=== PATIENT | male | born 1965 | race Caucasian/White ===

== ENCOUNTER 2019-05-26 13:28 | Emergency (ER) | payer BC ==
--- NOTE | 2019-05-26 13:55 | EDM.PDOC ---
ED HPI GENERAL MEDICAL PROBLEM - General Chief Complaint: Abdominal Pain Stated Complaint: STOMACH PAIN Time Seen by Provider: 05/26/19 13:49 Source of Information: Reports: Patient History Limitations: Reports: No Limitations - History of Present Illness INITIAL COMMENTS - FREE TEXT/NARRATIVE: This 54 yo male patient reports to the ED with right lower quadrant abdominal pain. The patient reports his symptoms started last night and have been intermittent throughout today. 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 The patient reports he has had kidney stones in the past and has had gastric bypass surgery. The patient reports he ate 1/2 of an ear of corn on the cob at about 12 :30 and he has been drinking tea. Onset Date: 05/25/19 Duration: Constant Location: Reports: Abdomen (RLQ) Quality: Reports: Ache, Dull Severity: Moderate Improves with: Reports: None Worsens with: Reports: None Context: Reports: Other Associated Symptoms: Reports: Other - Related Data Allergies Allergy/AdvReac Type Severity Reaction Status Date / Time No Known Allergies Allergy Verified 05/26/19 13:51 Home Meds: Home Meds Lisinopril/Hydrochlorothiazide [Lisinopril-Hctz 10-12.5 mg Tab] 1 tab PO DAILY 02/07/15 [History] Metoprolol Succinate [Toprol XL] 150 mg PO DAILY 02/07/15 [History] PARoxetine [Paxil] 40 mg PO QAM 02/07/15 [History] atorvaSTATin Calcium [Atorvastatin Calcium] 20 mg PO DAILY 02/07/15 [History] traZODone 100 mg PO BEDTIME 02/07/15 [History] Metoprolol Succinate [Toprol XL 100mg] 100 mg PO DAILY 05/14/16 [History] Past Medical History HEENT History: Reports: None Cardiovascular History: Reports: High Cholesterol, Hypertension Respiratory History: Reports: None Gastrointestinal History: Reports: None Genitourinary History: Reports: None Musculoskeletal History: Reports: None Neurological History: Reports: None Psychiatric History: Reports: Other (See Below) Other Psychiatric History: INSOMNIA Endocrine/Metabolic History: Reports: Diabetes, Type II Hematologic History: Reports: None Immunologic History: Reports: None Oncologic (Cancer) History: Reports: None Dermatologic History: Reports: None - Past Surgical History Other HEENT Surgeries/Procedures: RHINOPLASTY NEC Other GI Surgeries/Procedures: GASTRIC BYPASS Other Musculoskeletal Surgeries/Procedures:: KNEE FUSION ED ROS GENERAL - Review of Systems Review Of Systems: Comprehensive ROS is negative, except as noted in HPI. ED EXAM, GI/ABD - Physical Exam Exam: See Below Exam Limited By: No Limitations General Appearance: Alert, WD/WN, Mild Distress, Obese Eyes: Bilateral: Normal Appearance, EOMI Ears: Normal External Exam, Normal Canal, Hearing Grossly Normal, Normal TMs Nose: Normal Inspection, Normal Mucosa, No Blood Throat/Mouth: Normal Inspection, Normal Lips, Normal Teeth, Normal Gums, Normal Oropharynx, Normal Voice, No Airway Compromise Head: Atraumatic, Normocephalic Neck: Normal Inspection, Supple, Non-Tender, Full Range of Motion Respiratory/Chest: No Respiratory Distress, Lungs Clear, Normal Breath Sounds, No Accessory Muscle Use, Chest Non-Tender Cardiovascular: Normal Peripheral Pulses, Regular Rate, Rhythm, No Edema, No Gallop, No JVD, No Murmur, No Rub GI/Abdominal Exam: Normal Bowel Sounds, Guarding, Tender (RLQ) (Male) Exam: Deferred Rectal (Males) Exam: Deferred Back Exam: Normal Inspection, Full Range of Motion, NT Extremities: Normal Inspection, Normal Range of Motion, Non-Tender, Normal Capillary Refill, No Pedal Edema Neurological: Alert, Oriented, CN II-XII Intact, Normal Cognition, Normal Gait, Normal Reflexes, No Motor/Sensory Deficits Psychiatric: Normal Affect, Normal Mood Skin Exam: Warm, Dry, Intact, Normal Color, No Rash Lymphatic: No Adenopathy Course - Vital Signs Last Recorded V/S: Last Vital Signs Temp 36.6 C 05/26/19 13:47 Pulse 71 05/26/19 13:47 Resp 16 05/26/19 13:47 BP 122/86 05/26/19 13:47 Pulse Ox 97 05/26/19 13:47 - Orders/Labs/Meds Orders: Active Orders 24 hr Category Date Time Status Abdomen Pelvis w Cont [CT] Urgent Exams 05/26/19 15:06 Ordered Labs: Laboratory Tests 05/26/19 05/26/19 05/26/19 Range/Units 14:10 14:10 14:14 WBC 3.6 L (5.0-10.0) 10^3/uL RBC 4.61 (4.6-6.2) 10^6/uL Hgb 12.6 L (14.0-18.0) g/dL Hct 37.3 L (40.0-54.0) % MCV 80.9 (80-100) fL MCH 27.3 (27.0-34.0) pg MCHC 33.8 (33.0-35.0) g/dL Plt Count 184 (150-450) 10^3/uL Neut % (Auto) 42.0 L (42.2-75.2) % Lymph % (Auto) 42.7 (20.5-50.1) % [place] % (Auto) 12.5 H (2-8) % Eos % (Auto) 2.5 (1.0-3.0) % Baso % (Auto) 0.3 (0.0-1.0) % Sodium 136 (135-145) mmol/L Potassium 3.6 (3.6-5.0) mmol/L Chloride 101 (101-111) mmol/L Carbon Dioxide 28.0 (21.0-31.0) mmol/L Anion Gap 10.6 BUN 14 (7-18) mg/dL Creatinine 0.7 (0.6-1.3) mg/dL Est Cr Clr Drug Dosing 144.19 mL/min Estimated GFR (MDRD) > 60 BUN/Creatinine Ratio 20.00 Glucose 102 (74-105) mg/dL Calcium 9.1 (8.4-10.2) mg/dl Total Bilirubin 1.0 (0.2-1.0) mg/dL AST 18 (10-42) IU/L ALT 15 (10-60) IU/L Alkaline Phosphatase 64 (42-121) IU/L Total Protein 7.3 (6.7-8.2) g/dl Albumin 4.2 (3.2-5.5) g/dl Globulin 3.1 Albumin/Globulin Ratio 1.35 Urine Color Yellow (YELLOW) Urine Appearance Clear (CLEAR) Urine pH 7.0 (5.0-9.0) Ur Specific [place] <= 1.005 (1.005-1.030) Urine Protein Negative (NEGATIVE) Urine Glucose (UA) Negative (NEGATIVE) Urine Ketones Negative (NEGATIVE) Urine Occult Blood Negative (NEGATIVE) Urine Nitrite Negative (NEGATIVE) Urine Bilirubin Negative (NEGATIVE) Urine Urobilinogen 0.2 (0.2-1.0) mg/dL Ur Leukocyte Esterase Negative (NEGATIVE) Meds: Medications Discontinued Medications Generic Name Dose Route Start Last Admin Trade Name Tushar PRN Reason Stop Dose Admin Iopamidol 100 ml 05/26/19 15:06 05/26/19 15:20 Isovue-300 (61%) IVPUSH 05/26/19 15:07 100 ml ONETIME ONE Administration Departure - Departure Time of Disposition: 15:45 Disposition: Home, Self-Care 01 Condition: Fair Clinical Impression: Abdominal muscle strain Qualifiers: Encounter type: initial encounter Qualified Code(s): S39.011A - Strain of muscle, fascia and tendon of abdomen, initial encounter - Discharge Information *PRESCRIPTION DRUG MONITORING PROGRAM REVIEWED*: Not Applicable *COPY OF PRESCRIPTION DRUG MONITORING REPORT IN PATIENT CAMILA: Not Applicable Instructions: Abdominal Pain, Adult, [id number], Muscle Strain, [id number] Forms: ED Department Discharge Care Plan Goals: The patient was advised of the examination, lab and CT results during the visit. The patient was encouraged to rest and relax to allow time for healing. If the patient has any additional symptoms or concerns, the patient should either return to the emergency department or visit his primary care facility. Sepsis Event Note - Focused Exam Vital Signs: Vital Signs Temp Pulse Resp BP Pulse Ox 05/26/19 13:47 36.6 C 71 16 122/86 97 Date Exam was Performed: 05/26/19 Time Exam was Performed: 15:45 - My Orders Last 24 Hours: My Active Orders 05/26/19 15:06 Abdomen Pelvis w Cont [CT] Urgent - Assessment/Plan Last 24 Hours: My Active Orders 05/26/19 15:06 Abdomen Pelvis w Cont [CT] Urgent
[2019-05-26 14:36] LABS: ANION GAP 10.6; CHLORIDE,CL 101 mmol/L (101-111); SODIUM,NA 136 mmol/L (135-145)
[2019-05-26] MEDS ORDERED: Iopamidol 612 MG/ML 100 ML Bottle IVPUSH ONE (15:06)
[2019-05-26] MEDS ORDERED: HYDROmorphone 1 MG/ML Syringe IVPUSH ONE (15:13)
[2019-05-26 15:54] VITALS: BP 138/86; PULSE 63
--- NOTE | 2019-05-26 15:56 | CT ---
EXAMINATION: Abdomen Pelvis w Cont SEX: Male AGE: 54 years CLINICAL HISTORY: 54-year-old hypertensive 310 pound diabetic male complaining of RLQ abdominal pain....r/o hernia. Normal WBC. Afebrile patient. Scan technique: Volume acquisition of data from the abdomen and pelvis obtained without oral contrast but during intravenous ministration 100 cc nonionic Isovue (3 cc/s via injector) while patient was lying supine on the Siemens multislice scanner [place], [place]. All data archived in the PACS system for storage, reformatting and study. Interpretation: 1. Appendix clearly identified high in the right abdomen (RUQ) beneath the liver margin, next to the gallbladder. No appendicoliths, appendiceal or periappendiceal inflammation. Normal gallbladder, liver and pancreas. 2. Evidence of apparent gastric bypass surgery. No abdominal or pelvic mass lesion, signs of mechanical bowel obstruction, inflammatory "dirty" peritoneal fat, ascites or free intraperitoneal air. 3. Incidentally demonstrated large 7 x 12 mm teardrop calcification lower pole calyx left kidney. Tiny punctate calcifications upper pole calyx right kidney. No other signs of nephrolithiasis or obstructive uropathy. No renal cortical mass lesion. 4. Urinary bladder unremarkable. Midline prostate calcifications. Densely calcified atheromatous "cast" normal caliber aorta. 5. No ventral wall or inguinal/scrotal hernias. 6. Marginal spondylosis. No pathologic skeletal lesion, lumbar fracture or dislocation. 7. Normal cardiac silhouette. Lung bases clear. CONCLUSION: Evidence gastric bypass surgery. Atheromatous disease and arthritis. Nonobstructive nephrolithiasis, left kidney. Emergency CT scan abdomen and pelvis otherwise unremarkable i.e. negative.
== END 2019-05-26 15:55 | disposition home or self-care (01) ==
LOC: DL.ED 13:28
DX: S39.011A Strain of muscle, fascia and tendon of abdomen, initial encounter (principal); I10 Essential (primary) hypertension; E11.9 Type 2 diabetes mellitus without complications; E78.00 Pure hypercholesterolemia, unspecified; Z79.899 Other long term (current) drug therapy; X58.XXXA Exposure to other specified factors, initial encounter
CPT/HCPCS: 36415; 74177; 80053; 81003; 85025; 99284; Q9967